=== PATIENT | female | born 1990 | race Caucasian/White ===

== ENCOUNTER 2024-02-09 12:33 | Outpatient (CLI) | payer OTHER, MEDICAID, SELFPAY ==
[2024-02-09] VITALS (8 sets, daily range): BP systolic 103–121; BP diastolic 64–80; PULSE 72–97; RESP 13–18; TEMP 36; O2SAT 97–100
--- NOTE | 2024-02-09 13:00 | DI.RAD.S_ITS ---
PROCEDURE: PAIN SI JOINT INJECTION CHELSY INDICATIONS: JOINT DYSFUNCTION COMPARISON: [facility], CT, CT ABDOMEN PELVIS WITH CONTRAST, 12/12/2023, 11:49. [facility], CR, XR SACRUM AND COCCYX, 12/24/2023, 12:15. FINDINGS: Fluoroscopic spot filming was performed to verify placement of spinal needles at the bilateral SI joint level(s), as labeled on the films. Appropriate location(s) of the needle tip(s) was confirmed by injection of iodinated contrast. IMPRESSION: Intraoperative guidance provided. Dictated by: Issa Perez M.D. on 02/09/2024 at 14:33 Approved by: Issa Perez M.D. on 02/09/2024 at 14:34
[2024-02-09] MEDS: MIDAZOLAM 2 MG/2 ML VIAL IV (13:10)
[2024-02-09] MEDS: iopamidoL 15 ML VIAL 3 ML INJ (13:13)
[2024-02-09] MEDS: BUPIVACAINE 0.5% (PF) 10 ML VIAL 5 ML INJ (13:13)
[2024-02-09] MEDS: DEXAMETHASONE 10 MG/ML VIAL 20 MG INJ (13:14)
--- NOTE | 2024-02-09 15:26 | P.PCN_ITS ---
Date/Time/Diagnoses Date of procedure: 02/09/24 Time of procedure: 13:00 Procedure Notes Physician: Gurwinder Scott Total Fluoroscopy time (seconds): 25 Total sedation minutes: 15 Procedure in detail & Post-procedure care: Bilateral Sacroiliac Joint Injection Indications: Alison is presenting for treatment of SI joint dysfunction with low back/buttock pain. Preoperative diagnosis: Bilateral SI joint dysfunction Postoperative diagnosis: Same Focused Examination: Ax3 Mood and affect are normal Vital Signs: VSS ASA: 1 Consent: Following review of allergies and potential side effects/complications, including, but not necessarily limited to, infection, allergic reaction, local tissue breakdown, stroke, temporary or permanent nerve injury, paralysis, and possible , the patient indicated that they understood and agreed to proceed.? An informed consent document was signed by the patient, witnessed by a nurse and placed in the patient's chart.? Additionally, other treatment options including medications and physical therapy were reviewed with the patient. All questions were answered. Site was then marked. Anesthesia: After review of previous anesthetic history and IV conscious sedation, the patient was deemed safe to proceed with today's procedure with IV conscious sedation. IV sedation was accomplished with midazolam 2 mg administered by the RN after order by Dr. Scott. Sedation was titrated to patient comfort during the course of the procedure. Patient remained responsive to all verbal commands. Position: Prone Monitoring: NIBP, Pulse oximetry, 3 lead EKG Needle used: 22 ga, 3.5 inch spinal Contrast: 2 mL Isovue M-300 Injectate: Dexamethasone 7.5 mg with 0.5% bupivacaine 2 mL per side Technique: The skin was prepped with chloraprep and then draped in a sterile fashion. Time out was performed as per protocol. Oxygen applied via NC. Skin and subcutaneous structures of the needle entry site was then infiltrated with 5 mL of lidocaine 1%. Under AP and lateral fluoroscopic control, the spinal needle was guided into the right sacroiliac joint. 1 mL contrast was injected and was consistent with intra-articular placement. There was no evidence for intravascular uptake. After negative aspiration, the above-mentioned injectate was then slowly administered and the needle withdrawn. The patient expressed no unusual discomfort or paresthesias during the injection. Skin and subcutaneous structures of the needle entry site was then infiltrated with 5 mL of lidocaine 1%. Under AP and lateral fluoroscopic control, the spinal needle was guided into the left sacroiliac joint. 1 mL contrast was injected and was consistent with intra-articular placement. There was no evidence for intravascular uptake. After negative aspiration, the above-mentioned injectate was then slowly administered and the needle withdrawn. The patient expressed no unusual discomfort or paresthesias during the injection.Band-Aids applied to injection sites. EBL: less than 1 ml Complications: None Post Procedure: Patient was taken to the recovery and monitored. The patient was provided a Pain Log to continue to record the patient's response to the target- specific procedure prior to the patient's follow-up visit with the referring physician. Patient was stable upon discharge. Detailed post procedure instructions were provided. Patient was asked to call in the event of worsening pain, fever, weakness, numbness or bladder or bowel incontinence.
== END 2024-02-09 13:43 | disposition home or self-care (01) ==
PROVIDERS: Family Provider Pediatrics; Referring Provider Anesthesiology; Visit Provider Anesthesiology
DX: M53.3 Sacrococcygeal disorders, not elsewhere classified (principal)
CPT/HCPCS: 27096; 99152; J1100; J2250